=== PATIENT | female | born 2000 ===

== ENCOUNTER 2019-01-30 23:53 | Emergency (ER) | payer SELFPAY ==
[2019-01-31 01:09] LABS: SQUAMOUS EPITHIAL 1 /hpf (0-5); URINE BACTERIA RARE (<OCC); URINE BILIRUBIN NEGATIVE (NEGATIVE); URINE BLOOD 3+ (NEGATIVE); URINE CLARITY Hazy (Clear); URINE COLOR Yellow (YELLOW); URINE GLUCOSE (UA) NORMAL (Normal); URINE LEUKOCYTE ESTERASE NEG Leu/uL (Negative); URINE PROTEIN 1+ mg/dL (NEGATIVE); URINE UROBILINOGEN NORMAL mg/dL (0.2-1.0)
--- NOTE | 2019-01-31 02:01 | C.PDOC ---
History Of Present Illness 18 year old female presents with lower abdominal cramping for two weeks. Patient reports that over the past two weeks she has had one episodes of vomiting and one episode of diarrhea, not actively vomiting at this time. Her LMP started today, she reports some light spotting but is concerned if she is . Patient took three tylenol at home which usually helps for the pain but states today it did not. Denies any other complaints. Time Seen by Provider: 01/31/19 00:39 Chief Complaint (Nursing): Abdominal Pain History Per: Patient History/Exam Limitations: no limitations Onset/Duration Of Symptoms: Days (2 weeks) Current Symptoms Are (Timing): Still Present Quality Of Discomfort: Unable To Describe Associated Symptoms: Vomiting, Diarrhea Exacerbating Factors: None Alleviating Factors: None Recent travel outside of the [place]: No Last Menstral Period: Today Past Medical History Reviewed: Historical Data, Nursing Documentation, Vital Signs Vital Signs: Last Vital Signs Temp 98.7 F 01/31/19 00:02 Pulse 84 01/31/19 00:02 Resp 20 01/31/19 00:02 BP 122/87 01/31/19 00:02 Pulse Ox 97 01/31/19 00:02 Family History: States: Unknown Family Hx - Social History Hx Alcohol Use: Yes Hx Substance Use: No - Immunization History Hx Tetanus Toxoid Vaccination: No Hx Influenza Vaccination: No Hx Pneumococcal Vaccination: No Review Of Systems Constitutional: Negative for: Fever, Chills Cardiovascular: Negative for: Chest Pain, Palpitations Respiratory: Negative for: Cough, Shortness of Breath Gastrointestinal: Positive for: Vomiting, Abdominal Pain, Diarrhea Genitourinary: Negative for: Dysuria Musculoskeletal: Negative for: Back Pain Skin: Negative for: Rash Physical Exam - Physical Exam Appears: Well, Non-toxic, No Acute Distress Skin: Normal Color, Warm, No Rash Head: Atraumatic, Normacephalic Eye(s): bilateral: Normal Inspection Oral Mucosa: Moist Cardiovascular: Rhythm Regular Respiratory: Normal Breath Sounds, No Accessory Muscle Use, No Other (Normal inspiratory effort) Gastrointestinal/Abdominal: Soft, No Tenderness Pelvic: Other (Dark red blood in the vault with pooling. No adnexal tenderness or CMT. 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.) Neurological/Psych: Oriented x3, Normal Speech ED Course And Treatment - Laboratory Results Lab Results: Urine Color Yellow (YELLOW) 01/31/19 00:59 Urine Clarity Hazy (Clear) 01/31/19 00:59 Urine pH 5.0 (5.0-8.0) 01/31/19 00:59 Ur Specific Jber 1.027 (1.003-1.030) 01/31/19 00:59 Urine Protein 1+ mg/dL (NEGATIVE) H 01/31/19 00:59 Urine Glucose (UA) Normal mg/dL (Normal) 01/31/19 00:59 Urine Ketones Negative mg/dL (NEGATIVE) 01/31/19 00:59 Urine Blood 3+ (NEGATIVE) H 01/31/19 00:59 Urine Nitrate Negative (NEGATIVE) 01/31/19 00:59 Urine Bilirubin Negative (NEGATIVE) 01/31/19 00:59 Urine Urobilinogen Normal mg/dL (0.2-1.0) 01/31/19 00:59 Ur Leukocyte Esterase Neg Alix/uL (Negative) 01/31/19 00:59 Urine WBC (Auto) 7 /hpf (0-5) H 01/31/19 00:59 Urine RBC (Auto) 102 /hpf (0-3) H 01/31/19 00:59 Ur Squamous Epith Cells 1 /hpf (0-5) 01/31/19 00:59 Urine Bacteria Rare (<OCC) 01/31/19 00:59 Hyaline Casts 3-5 /lpf (0-2) H 01/31/19 00:59 Urine HCG, Qual Negative (NEGATIVE) 01/31/19 00:59 Urine HCG, Qual Negative (NEGATIVE) 01/31/19 00:59 O2 Sat by Pulse Oximetry: 97 (room air) Pulse Ox Interpretation: Normal Medical Decision Making Medical Decision Making: her symptoms appear to be reproductive in nature. she does not have any vomiting, nausea or change in bm. 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 - Scribe Statement The provider has reviewed the documentation as recorded by the Scribjuliana Oliver All medical record entries made by the Norris were at my direction and personally dictated by me. I have reviewed the chart and agree that the record accurately reflects my personal performance of the history, physical exam, medical decision making, and the department course for this patient. I have also personally directed, reviewed, and agree with the discharge instructions and disposition.
[2019-01-31 02:30] VITALS: BP 118/72; PULSE 80; RESP 18; TEMP 98.1
[2019-01-31 03:02] VITALS: O2SAT 97
== END 2019-01-31 02:30 | disposition home or self-care (01) ==
LOC: C.ER 23:53
DX: N94.6 Dysmenorrhea, unspecified (principal)